=== PATIENT | female | born 1955 | race Caucasian/White ===

== ENCOUNTER → 2016-12-03 | Outpatient (CLI) | payer OTHER ==
[~2016-12-03] VITALS: Ht 163.8 cm; Wt 74.3 kg
[~2016-12-03] MED LIST: ASPI81CH37 CHEW; BIOT1CHW PO; CETI10 PO; CHLORHEXIDINE GLUCONATE 2 % 1 PACK (2 CLOTHS) TOPICAL PRN; INSULIN HUMAN REGULAR 1,000 UNITS/10 ML VIAL SQ PRN; LACTATED RINGER'S 1000 ML IV PRN; METOPROLOL TARTRATE 25 MG TAB PO PRN; OMEP40CA2 PO; POVIDONE IODINE 5% (ANTISEPSIS KIT) 4 APPLICATIONS EACH NARE PRN; PROPOFOL 200 MG/20 ML AMP IV ONE; SODIUM CHLORID 0.9% 500 ML IV PRN; VITA200C3 PO
[2016-12-03 09:27] VITALS: BP 148/82; PULSE 76; RESP 18; TEMP 98.2; O2SAT 99
[2016-12-03 12:12] VITALS: BP 136/69; PULSE 62; RESP 18; TEMP 97; O2SAT 100
--- NOTE | 2016-12-04 08:08 | EKG ---
Date Performed: 12/03/2016 Time Performed: 09:37:03 PTAGE: 61 years EKG: Sinus rhythm NORMAL ECG NO PREVIOUS TRACING DOCTOR: Lavell Jeronimo Interpretating Date/Time 12/04/2016 08:04:54
--- NOTE | 2016-12-05 14:24 | MR ---
cc: ROOSEVELT GUARDADO M.D. DATE 12/03/2016 PROCEDURES Upper endoscopy and colonoscopy. DATE OF 1955 INDICATIONS FOR PROCEDURE 1. 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 2. 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 Photographs and biopsies taken. PREMEDICATION Administered by anesthesiology. MONITORING Constant pulse oximeter, EKG, blood pressure monitor. PROCEDURE NOTE After informed consent obtained and procedures, risks, benefits were explained including risks of bleeding, sepsis, perforation, risk of anesthesia, the patient was placed in the left lateral position. The video endoscope was inserted into the esophagus under direct visualization. The esophagus appeared to be normal except for one linear erosions at the EG junction. Biopsies of the proximal and distal esophagus were obtained. The Z-line appeared to be fairly unremarkable. There was hiatus hernia noted too. The stomach was entered. Gastric mucosa was visualized and found to be normal throughout in the retroflex view, some small gastric polyps were found. Two of these were biopsied for sampling. These were about 4 or 5 mm. The antrum and pylorus were normal. The first, second, third portion of the duodenum were unremarkable. A wire was then placed in the distal antrum and a Savary-Betty dilator 17 mm was passed over the guidewire with mild resistance, tolerated well. The patient then was repositioned and colonoscopy performed. The video colonoscope was inserted into the rectum, was advanced to the cecum and terminal ileum in the usual fashion. Colonic mucosa throughout appeared to be grossly normal without any inflammatory or ulcerative changes. Random biopsies were taken throughout the colon and the scope was removed. The terminal ileum did appear to be normal as well. In the transverse colon two diminutive polyps were found. These appeared to be hyperplastic. These were biopsied off and removed. Minimal diverticulosis noted in the descending colon. In the rectosigmoid two additional small diminutive polyps were found, again appearing to be hyperplastic, these were biopsied and removed. In the retroflex view, internal hemorrhoids grade 1 were noted without active bleeding. The scope was removed. The patient tolerated the procedure well. She was sent to recovery room in stable condition. IMPRESSION 1. Mild erosive esophagitis at the EG junction. 2. Hiatal hernia. 3. Status post wire dilatation of the esophagus for dysphagia. Biopsies were also taken to rule out microscopic disease, otherwise unremarkable upper endoscopy. 4. Colon mucosa appeared to be normal on colonoscopy exam. No evidence of colitis or ulcerative changes. Diminutive polyps were biopsied off as outlined above. The patient had mild diverticulosis and internal hemorrhoids. PLAN We will follow the biopsies taken today. Will follow up clinically as an outpatient post dilatation and continue acid suppressive therapy with PPI i.e. omeprazole 40 milligrams daily. MD GRETCHEN Phelps/MARIFER /11:55 AM /2:09 PM
== END ==
LOC: HEND 08:40
PROVIDERS: ATTEND Internal Medicine Gastroenterology
DX: R13.10 Dysphagia, unspecified (principal); K22.70 Barrett's esophagus without dysplasia; K51.30 Ulcerative (chronic) rectosigmoiditis without complications; K22.10 Ulcer of esophagus without bleeding; K44.9 Diaphragmatic hernia without obstruction or gangrene; K31.7 Polyp of stomach and duodenum; D12.5 Benign neoplasm of sigmoid colon; D12.3 Benign neoplasm of transverse colon; K57.90 Diverticulosis of intestine, part unspecified, without perforation or abscess without bleeding; K64.8 Other hemorrhoids; Z01.810 Encounter for preprocedural cardiovascular examination
CPT/HCPCS: 00740; 00810; 43239; 43248; 45380; 88305; 88312; 93005; C1769; J7120